=== PATIENT | male | born 1935 | race Hispanic/Latino ===

== ENCOUNTER 2018-03-02 16:15 | Emergency (ER) | payer MEDICARE ==
[~2018-03-02 16:15] MED LIST: CARV6.25 PO; DULA1.5P SQ; FURO40TA5 PO; MAGN100T5 PO; MEMA10TA20 PO; POTA20PA41 PO; SERT50TA12 PO
[2018-03-02 16:42] LABS: BASOPHILS % (AUTO) 1.2 % (0.0-5.0); EOSINOPHILS % (AUTO) 2.1 % (0.0-8.0); HEMATOCRIT 45.1 % (42-54); LYMPHOCYTES % (AUTO) 15.9 % (21.0-51.0); MEAN CORPUSCULAR HEMOGLOBIN 30.1 pg (27.0-33.0); MEAN CORPUSCULAR HGB CONC 34.6 g/dL (32.0-36.0); MONOCYTES % (AUTO) 7.2 % (3.0-13.0); NEUTROPHILS % (AUTO) 73.6 % (40.0-77.0); NUCLEATED RED BLOOD CELLS 0.1 % (0.0-0.19); PLATELET COUNT (AUTO) 202 K/uL (130-400); RED BLOOD CELL COUNT(AUTO) 5.18 MIL/uL (4.50-6.20)
[2018-03-02 16:54] LABS: CREATININE 1.3 mg/dL (0.5-1.5); POTASSIUM 4.3 mmol/L (3.5-5.1)
[2018-03-02] MEDS ORDERED: CLINDAMYCIN 600 MG/D5% WATER 50 ML IV ONE (16:54)
[2018-03-02 16:58] LABS: ALBUMIN 3.5 g/dL (3.5-5.0); BILIRUBIN,TOTAL 0.5 mg/dL (0.2-1.0); TOTAL PROTEIN, SERUM 7.2 g/dL (6.0-8.3)
[2018-03-02 17:01] LABS: B-TYPE NATRIURETIC PEPTIDE 690 pg/mL (0-100)
[2018-03-02] MEDS ORDERED: FUROSEMIDE 10 MG/ML 4ML VIAL ONE (18:40)
== END 2018-03-02 19:34 | disposition home or self-care (01) ==
LOC: EDH 16:15
DX: L02.31 Cutaneous abscess of buttock (principal); R60.0 Localized edema; I13.0 Hypertensive heart and chronic kidney disease with heart failure and stage 1 through stage 4 chronic kidney disease, or unspecified chronic kidney disease; N18.9 Chronic kidney disease, unspecified; I50.9 Heart failure, unspecified; E78.5 Hyperlipidemia, unspecified; Z95.810 Presence of automatic (implantable) cardiac defibrillator
CPT/HCPCS: 36415; 80053; 83880; 84484; 85025; 96365; 96375; 99284; J1940; J3490

== ENCOUNTER 2018-07-22 10:52 | Emergency (ER) | payer MEDICARE ==
[2018-07-22] MEDS ORDERED: BUSP10TA3 PO (10:55)
[2018-07-22] MEDS ORDERED: DONE10TA43 PO (10:55)
[2018-07-22] MEDS ORDERED: POTA-79 PO (10:55)
[2018-07-22] MEDS ORDERED: ACET-66 PO (10:55)
[2018-07-22] MEDS ORDERED: L.AC1CAP6 PO (10:55)
[2018-07-22] MEDS ORDERED: NAPR-1023 PO (10:55)
[2018-07-22] MEDS ORDERED: FURO40TA5 PO (10:56)
[2018-07-22 12:28] LABS: BASOPHILS % (AUTO) 0.7 % (0.0-5.0); EOSINOPHILS % (AUTO) 0.3 % (0.0-8.0); HEMATOCRIT 42.9 % (42-54); LYMPHOCYTES % (AUTO) 12.9 % (21.0-51.0); MEAN CORPUSCULAR HEMOGLOBIN 30.6 pg (27.0-33.0); MEAN CORPUSCULAR HGB CONC 34.5 g/dL (32.0-36.0); MEAN CORPUSCULAR VOLUME 88.7 fL (79-99); NEUTROPHILS % (AUTO) 79.1 % (40.0-77.0); PLATELET COUNT (AUTO) 169 K/uL (130-400); RED BLOOD CELL COUNT(AUTO) 4.84 MIL/uL (4.50-6.20); RED CELL DISTRIBUTION WIDTH 13.5 % (11.0-15.5); WHITE BLOOD COUNT (AUTO) 11.3 K/uL (4.8-10.8)
[2018-07-22 12:34] LABS: CREATININE 1.2 mg/dL (0.5-1.5); POTASSIUM 3.6 mmol/L (3.5-5.1)
[2018-07-22 12:38] LABS: ALBUMIN 3.4 g/dL (3.5-5.0); BILIRUBIN,DIRECT 0.2 mg/dL (0.0-0.3); BILIRUBIN,TOTAL 0.9 mg/dL (0.2-1.0); CRP QUANTITATIVE 117.5 mg/L (0.00-9.0); TOTAL PROTEIN, SERUM 7.7 g/dL (6.0-8.3); URIC ACID 10.1 mg/dL (2.6-7.2)
[2018-07-22 13:46] LABS: ERYTHROCYTE SEDIMENTATION RATE 37 MM/HR (0-20)
[2018-07-22] MEDS ORDERED: ACETAMINOPHEN-CODEINE 300/30MG TAB ONE (14:18)
== END 2018-07-22 14:34 | disposition home or self-care (01) ==
LOC: EDH 10:52
DX: M10.9 Gout, unspecified (principal); M25.572 Pain in left ankle and joints of left foot; I13.0 Hypertensive heart and chronic kidney disease with heart failure and stage 1 through stage 4 chronic kidney disease, or unspecified chronic kidney disease; E11.22 Type 2 diabetes mellitus with diabetic chronic kidney disease; N18.9 Chronic kidney disease, unspecified; E78.5 Hyperlipidemia, unspecified; Z95.1 Presence of aortocoronary bypass graft; Z90.49 Acquired absence of other specified parts of digestive tract; Z87.891 Personal history of nicotine dependence
CPT/HCPCS: 36415; 73610; 73630; 80048; 80076; 84550; 85025; 85651; 86140; 93971

== ENCOUNTER 2018-07-23 06:00 | Day surgery (SDC) | payer MEDICARE ==
[2018-07-22 10:15] VITALS: BP 127/70
[2018-07-22 10:40] LABS: BASOPHILS % (AUTO) 0.5 % (0.0-5.0); EOSINOPHILS % (AUTO) 0.6 % (0.0-8.0); HEMATOCRIT 45.7 % (42-54); LYMPHOCYTES % (AUTO) 11.2 % (21.0-51.0); MEAN CORPUSCULAR HEMOGLOBIN 30.5 pg (27.0-33.0); MEAN CORPUSCULAR HGB CONC 34.1 g/dL (32.0-36.0); MEAN CORPUSCULAR VOLUME 89.4 fL (79-99); MONOCYTES % (AUTO) 6.8 % (3.0-13.0); NEUTROPHILS % (AUTO) 80.9 % (40.0-77.0); NUCLEATED RED BLOOD CELLS 0.1 % (0.0-0.19); PLATELET COUNT (AUTO) 192 K/uL (130-400); RED BLOOD CELL COUNT(AUTO) 5.11 MIL/uL (4.50-6.20); RED CELL DISTRIBUTION WIDTH 13.4 % (11.0-15.5); WHITE BLOOD COUNT (AUTO) 11.4 K/uL (4.8-10.8)
[2018-07-22 10:47] LABS: CREATININE 1.1 mg/dL (0.5-1.5); POTASSIUM 3.5 mmol/L (3.5-5.1)
[2018-07-22 10:49] LABS: INR 1.07 (0.85-1.15); PARTIAL THROMBOPLASTIN TIME 34.1 SEC (26.3-35.5); PROTHROMBIN TIME 11.2 SEC (9.6-11.6)
--- NOTE | 2018-07-22 11:37 | NUR ---
ABNORMAL LABS NOTIFIED DOMINIQUE HANNA PT'S WBC IS 11.4. NO FURTHER ORDERS GIVEN.
--- NOTE | 2018-07-22 14:54 | NUR ---
NOTIFIED NAVID FOX OF DR. RICCI OF DX OF PT POST ER VISIT OF GOUT. FAMILY IS CONCERNED IF OK TO STILL PROCEDURE TOMORROW. PER NAVID OK TO PROCEED UNLESS PATIENT DEVELOPS FEVER. INSTRUCTED PATIENT AND FAMILY THAT IF PATIENT DEVELOPS FEVER TO PLEASE INFORM MD. BOTH PATIENT AND FAMILY VERBALIZED UNDERSTANDING AND AGREED TO CALL.
[2018-07-23] VITALS (11 sets, daily range): BP systolic 97–131; BP diastolic 47–68
[~2018-07-23] VITALS: Ht 167.6 cm; Wt 91.2 kg
[~2018-07-23 06:00] MED LIST changes: +ACET-66 PO; +BUSP10TA3 PO; +DONE10TA43 PO; +L.AC1CAP6 PO; +NAPR-1023 PO; +POTA-79 PO; -POTA20PA41 PO
[2018-07-23] MEDS ORDERED: SODIUM CHLORIDE 0.9% 1000ML 1,000 ML IV ONE (06:39)
[2018-07-23] MEDS ORDERED: BUPIVACAINE/PF 0.25% 30ML VIAL IJ ONE (07:20)
[2018-07-23] MEDS ORDERED: LIDOCAINE HCL 1% MDV 50ML VIAL ONE (07:20)
[2018-07-23] MEDS ORDERED: CEFAZOLIN SODIUM 1 GM VIAL ONE (07:20)
[2018-07-23] MEDS ORDERED: MEPERIDINE-PF 25 MG/ML SYG ONE (07:50)
[2018-07-23] MEDS ORDERED: MIDAZOLAM HCL 1 MG/ML 2ML VIAL ONE ×2 (07:50→10:52)
[2018-07-23] MEDS ORDERED: ACETAMINOPHEN 325 MG TAB PO PRN (09:15)
[2018-07-23] MEDS ORDERED: DEXTROSE 50%-WATER 50 ML DISP.SYRIN IV PRN (09:15)
[2018-07-23] MEDS ORDERED: ACETAMINOPHEN-CODEINE 300/30MG TAB PO PRN (09:15)
[2018-07-23] MEDS ORDERED: GLUCAGON 1MG KIT 1 MG ML IM PRN (09:15)
--- NOTE | 2018-07-23 09:27 | NUR ---
Pt post slabber Pt received to room 16. Pt resting, no distress noted. Dressing to right upper shoulder, dressing dry and intact. Pt placed on quality assurance monitor, BP, o2 sat and temperature. Family at bedside. Aware of planned bedrest along with second dose of ancef at 1400 with preliminary dc time of 1500.
--- NOTE | 2018-07-23 11:15 | NUR ---
GAVE REPORT TO HAIR COYNE RN, NO CONCERNS VOICED.
[2018-07-23] MEDS ORDERED: INSULIN HUMULIN R 100 UNIT/ML 3ML SQ SCH (11:30)
--- NOTE | 2018-07-23 11:30 | NUR ---
APPOINTMENT ALREADY MADE BY PREVIOUS NURSE. XENA GUEVARA CALLED AND STATED THAT DR APPOINTMENT WAS TO BE WITH DR CORREA AND NOT NECESSARY WITH DR. RICCI. XENA GUEVARA STATED THAT WHILE DR. RICCI WAS SPEAKING TO PT'S FAMILY HE STATED TO FOLLOW UP CARE WITH DR. CORREA.
[2018-07-23] MEDS ORDERED: CEFAZOLIN SODIUM 1 GM VIAL IVP SCH (14:00)
--- NOTE | 2018-07-23 15:00 | NUR ---
PT discharged home, tolerating fluids/solid food well, ambulating with stand-by assistance x 2, as comparable to arrival. 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 Pt's daughter states they are following up with their primary doctor tomorrow. Pt denies any dizziness, nausea or pain to left chest surgical site. Pressure dressing to left chest surgical site removed, OpSite dressing remains dry, clean and intact. Pt remained with chest elevated while recovering and encouraged to do so at home. Application of ice completed. Instructions given on proper use of ice at home. Antibiotic prescription given to daughter. Daughter, pt, and SO report no further questions at this time.
== END 2018-07-23 15:00 | disposition home or self-care (01) ==
LOC: DAH 06:00
PROVIDERS: ATTEND Internal Medicine Cardiovascular Disease
DX: T82.191A Other mechanical complication of cardiac pulse generator (battery), initial encounter (principal); I42.8 Other cardiomyopathies; R00.0 Tachycardia, unspecified; Z79.899 Other long term (current) drug therapy; M10.9 Gout, unspecified; M25.572 Pain in left ankle and joints of left foot; Z98.890 Other specified postprocedural states; I13.0 Hypertensive heart and chronic kidney disease with heart failure and stage 1 through stage 4 chronic kidney disease, or unspecified chronic kidney disease; M25.472 Effusion, left ankle; L53.9 Erythematous condition, unspecified; E11.22 Type 2 diabetes mellitus with diabetic chronic kidney disease; N18.3 Chronic kidney disease, stage 3 (moderate); I50.42 Chronic combined systolic (congestive) and diastolic (congestive) heart failure; Z79.84 Long term (current) use of oral hypoglycemic drugs; E78.1 Pure hyperglyceridemia; Z68.32 Body mass index [BMI] 32.0-32.9, adult; I44.7 Left bundle-branch block, unspecified
CPT/HCPCS: 33263; 36415 ×2; 73610; 73630; 80048 ×2; 80076; 82948 ×2; 84550; 85025 ×2; 85610; 85651; 85730; 86140; 93005; 93971; 99284; A4218; A4606; C1721; J0690 ×2; J2175; J2250 ×2; J3490 ×2; J7030; 99156; 99157